=== PATIENT | female | born 1985 | race African-American/Black ===

== ENCOUNTER 2017-05-24 14:25 | Emergency (ER) | payer BC, OTHER ==
[2017-05-24 14:31] VITALS: BMI 34.0
--- NOTE | 2017-05-24 14:31 | PDOC ---
History of Present Illness - General History Source: Patient - History of Present Illness Initial Comments: 05/24/17 15:03 The patient is a 31 year old female, with a significant past medical history of diabetes (taking metformin daily) and psoriasis (untreated), who presents to the emergency department with abdominal pain, nausea, vomiting, chills, and diffuse body aches since this morning. The patient states she woke up with diffuse abdominal pain, drank jerel tea and developed nausea, followed by a couple episodes of vomiting, shortly after. The patient states she recorded her blood glucose as 280 at 10AM. She denies taking her metformin today secondary to her nausea and vomiting. She denies chest pain, shortness of breath, headache and dizziness. She denies fever, diarrhea and constipation. She denies dysuria, frequency, urgency and hematuria. Allergies: NKDA Past surgical history: hernia repair Social history: Pt denies toxic habits <Kate Salmon - Last Filed: 05/24/17 15:02> <Cyndie Prajapati - Last Filed: 05/24/17 17:27> - General Chief Complaint: Vomiting/Diarrhea Stated Complaint: VOMITING, DIARRHEA Time Seen by Provider: 05/24/17 14:29 Past History <Kate Salmon - Last Filed: 05/24/17 15:02> <Cyndie Prajapati - Last Filed: 05/24/17 17:27> - Past Medical History Allergies/Adverse Reactions: Allergies Allergy/AdvReac Type Severity Reaction Status Date / Time No Known Allergies Allergy Verified 05/24/17 14:28 Home Medications: Ambulatory Orders Metformin HCl [Glucophage] 2,000 mg PO DAILY 05/24/17 Ondansetron [Zofran Odt -] 4 mg SL TID PRN #21 od.tablet 05/24/17 Review of Systems - Review of Systems Able to Perform ROS?: Yes Comments:: 05/24/17 15:03 GENERAL/CONSTITUTIONAL: (+) chills and generalized body aches. No fever or weakness. HEAD, EYES, EARS, NOSE AND THROAT: No change in vision. No ear pain or discharge. No sore throat. CARDIOVASCULAR: No chest pain or shortness of breath. RESPIRATORY: No cough, wheezing, or hemoptysis. GASTROINTESTINAL: (+) nausea, vomiting, abdominal pain. No diarrhea or constipation. GENITOURINARY: No dysuria, frequency, or change in urination. MUSCULOSKELETAL: No joint or muscle swelling or pain. No neck or back pain. SKIN: No rash NEUROLOGIC: No headache, vertigo, loss of consciousness, or change in strength/ sensation. ENDOCRINE: No increased thirst. No abnormal weight change. HEMATOLOGIC/LYMPHATIC: No anemia, easy bleeding, or history of blood clots. ALLERGIC/IMMUNOLOGIC: No hives or skin allergy. <Kate Salmon - Last Filed: 05/24/17 15:02> *Physical Exam - Vital Signs Last Vital Signs Temp Pulse Resp BP Pulse Ox 99.7 F H 113 H 20 138/96 97 05/24/17 14:25 05/24/17 14:25 05/24/17 14:25 05/24/17 14:25 05/24/17 14:25 - Physical Exam Comments: 05/24/17 15:04 GENERAL: Awake, alert, and fully oriented, in no acute distress HEAD: No signs of trauma EYES: PERRLA, EOMI, sclera anicteric, conjunctiva clear ENT: (+) Dry mucosa, Auricles normal inspection, hearing grossly normal, nares patent, oropharynx clear without exudates. NECK: Normal ROM, supple, no lymphadenopathy, JVD, or masses LUNGS: Breath sounds equal, clear to auscultation bilaterally. No wheezes, and no crackles HEART: (+) Tachycardic with regular rhythm, normal S1 and S2, no murmurs, rubs or gallops ABDOMEN: (+) Diffuse tenderness to palpation with increased tenderness to the left upper quadrant. Soft, normoactive bowel sounds. No guarding, no rebound. No masses EXTREMITIES: Normal range of motion, no edema. No clubbing or cyanosis. No cords, erythema, or tenderness NEUROLOGICAL: Cranial nerves II through XII grossly intact. Normal speech, normal gait SKIN: Warm, Dry, normal turgor, no rashes or lesions noted. <Kate Salmon - Last Filed: 05/24/17 15:02> ED Treatment Course - Medications Given in the ED: ED Medications Discontinued Medications Generic Name Dose Route Start Last Admin Trade Name Freq PRN Reason Stop Dose Admin Ondansetron HCl 4 mg 05/24/17 14:52 05/24/17 14:57 Zofran Injection IVPUSH 05/24/17 14:53 4 mg ONCE ONE Administration <Kate Salmon - Last Filed: 05/24/17 15:02> - LABORATORY CBC & Chemistry Diagram: 05/24/17 14:40 05/24/17 14:40 <Cyndie Prajapati - Last Filed: 05/24/17 17:27> Medical Decision Making - Medical Decision Making 05/24/17 15:13 No signs of acute abdomen on initial exam. Patient appears dehydrated. Will give GI cocktail and reassess. If not improving, will consider CT. 05/24/17 17:27 Pt reports improvement in symptoms. No signs of acute abdomen. Stable for DC home. <Cyndie Prajapati - Last Filed: 05/24/17 17:27> *DC/Admit/Observation/Transfer - Attestations Scribe Attestion: 05/24/17 15:05 Documentation prepared by Kate Salmon, acting as medical cost consultant for Cyndie Prajapati MD, <Kate Salmon - Last Filed: 05/24/17 15:02> - Discharge Dispostion Admit: No <Cyndie Prajapati - Last Filed: 05/24/17 17:27> Diagnosis at time of Disposition: Nausea, vomiting and diarrhea - Discharge Dispostion Disposition: HOME Condition at time of disposition: Stable - Prescriptions Prescriptions: Ondansetron [Zofran Odt -] 4 mg SL TID PRN #21 od.tablet PRN Reason: Nausea And/Or Vomiting
[2017-05-24] MEDS ORDERED: FAMOTIDINE 20 MG/50 ML IVPB 20 MG/50 ML MG IVPB ONE (14:52)
[2017-05-24] MEDS ORDERED: ONDANSETRON 4 MG/2 ML VIAL IVPUSH ONE (14:52)
[2017-05-24] MEDS ORDERED: SODIUM CHLORIDE 1,000 ML IV STA ×2 (14:52)
[2017-05-24] MEDS ORDERED: ONDANSETRON 4 MG/2 ML VIAL ONE (14:54)
[2017-05-24 15:24] LABS: URINE APPEARANCE Clear; URINE BILIRUBIN Negative (NEGATIVE); URINE GLUCOSE (UA) Negative (NEGATIVE); URINE KETONE Trace (NEGATIVE); URINE NITRITE Negative (NEGATIVE); URINE UROBILINOGEN 0.2 (0.2-1.0)
[2017-05-24 15:25] LABS: BASO % 0.3 % (0-2.0); EOS % 0.5 % (0-4.5); HEMATOCRIT 44.3 % (32.4-45.2); HEMOGLOBIN 14.6 GM/dl (10.7-15.3); LYMPH % 6.3 % (8-40); MCH 27.4 pg (25.7-33.7); MEAN CELL VOLUME 83.2 fl (80-96); MEAN PLT VOLUME 10.2 fl (7.5-11.1); MONO % 6.4 % (3.8-10.2); NEUT % 86.5 % (42.8-82.8); PLATELET COUNT 305 K/MM3 (134-434); RBC 5.32 M/mm3 (3.60-5.2); RDW 14.7 % (11.6-15.6); URINE BLOOD Trace-intact (NEGATIVE); URINE PROTEIN 1+ (NEGATIVE); WHITE BLOOD COUNT 10.4 K/mm3 (4.0-10.8)
[2017-05-24 15:26] LABS: URINE COLOR AMBER
[2017-05-24 15:32] LABS: EPI CELLS MODERATE /HPF; URINE BACTERIA FEW /hpf (NEGATIVE)
[2017-05-24 15:37] LABS: ALK PHOS 66 U/L (32-92); ANION GAP 7 (8-16); BLOOD UREA NITROGEN 13 mg/dl (7-18); CALCIUM 9.4 mg/dl (8.4-10.2); CHLORIDE 101 mmol/L (98-107); CO2 26 mmol/L (22-28); CREATININE 0.7 mg/dl (0.6-1.3); GLUCOSE,RANDOM 219 mg/dl (74-106); LIPASE 12 U/L (22-51); POTASSIUM 4.5 mmol/L (3.5-5.1); SGOT/AST 18 U/L (10-42); SGPT/ALT 20 U/L (10-40); SODIUM 134 mmol/L (136-145); TOT PROT 7.6 g/dl (6.4-8.3)
[2017-05-24] MEDS ORDERED: LOPERAMIDE HCL 2 MG CAPSULE PO ONE (17:25)
[2017-05-24 17:26] VITALS: BP 129/77; PULSE 90; TEMP 98.3
[2017-05-24] MEDS ORDERED: LOPERAMIDE HCL 2 MG CAPSULE ONE (17:37)
== END 2017-05-24 18:28 | disposition home or self-care (01) ==
LOC: FER 14:25
PROC: 3E033GC Introduction of Other Therapeutic Substance into Peripheral Vein, Percutaneous Approach (ICD-10-PCS; principal; 2017-05-24)
PROC: 3E0337Z Introduction of Electrolytic and Water Balance Substance into Peripheral Vein, Percutaneous Approach (ICD-10-PCS; 2017-05-24)
DX: R11.2 Nausea with vomiting, unspecified (principal); R19.7 Diarrhea, unspecified; Z79.84 Long term (current) use of oral hypoglycemic drugs
CPT/HCPCS: 80053; 81003; 81015; 83690; 85025; 99284-25